=== PATIENT | male | born 1990 | race Caucasian/White ===

== ENCOUNTER 2016-11-22 08:50 | Emergency (ER) | payer OTHER ==
[2016-11-22 09:51] LABS: URINE SOURCE CLEAN CATCH
[2016-11-22 10:08] LABS: URINE APPEARANCE CLEAR; URINE BILIRUBIN NEG (NEG); URINE BLOOD NEG (NEG); URINE COLOR YELLOW; URINE GLUCOSE NEG (NEG); URINE KETONE TRACE (NEG); URINE LEUKOCYTE ESTERASE NEG (NEG); URINE NITRATE NEG (NEG); URINE PROTEIN NEG (NEG); URINE SPECIFIC GRAVITY 1.027 (1.003-1.035)
[2016-11-22 10:11] LABS: CULTURE INDICATED? NO
[2016-11-25 17:25] LABS: CHLAMYDIA TRACH Not Detected (Not Detected); N GONOR Not Detected (Not Detected)
== END 2016-11-22 10:40 | disposition home or self-care (01) ==
LOC: CED 08:50
PROVIDERS: Emergency Medicine
DX: Z20.2 Contact with and (suspected) exposure to infections with a predominantly sexual mode of transmission (principal)
CPT/HCPCS: 81003; 87491; 87591; 96372; 99283; J0696